=== PATIENT | male | born 1970 | race African-American/Black ===

== ENCOUNTER 2025-11-05 22:24 | Emergency (ER) | payer MEDICARE, OTHER ==
[~2025-11-05] VITALS: Ht 170.2 cm; Wt 68.0 kg
[2025-11-05 22:35] VITALS: O2SAT 98
[2025-11-05] MEDS: IPRATROPIUM BROMIDE 0.5 MG/2.5 ML NEBU NEB ONE (22:35)
[2025-11-05] MEDS: ALBUTEROL SULFATE 2.5 MG/3 ML NEBU NEB ONE (22:36)
[2025-11-05] MEDS ORDERED: IPRATROPIUM BROMIDE 0.5 MG/2.5 ML NEBU ONE (22:38)
[2025-11-05] MEDS ORDERED: ALBUTEROL SULFATE 2.5 MG/3 ML NEBU ONE (22:38)
[2025-11-05 22:45] VITALS: O2SAT 100
[2025-11-05 22:51] LABS: PLATELET COUNT (AUTO) 407 K/uL (152-348); RED BLOOD CELL COUNT(AUTO) 3.53 MIL/uL (4.06-5.63); RED CELL DISTRIBUTION WIDTH 14.9 % (12.1-16.2); WHITE BLOOD COUNT (AUTO) 7.6 K/uL (3.6-10.2)
[2025-11-05 22:58] LABS: CREATININE 1.2 mg/dL (0.6-1.3); SODIUM SERUM 141 mmol/L (136-145); UREA NITROGEN, BLOOD 23 mg/dL (7-18)
[2025-11-05 23:04] LABS: ASPARTATE AMINOTRANSFERASE 22 U/L (15-37); TOTAL PROTEIN, SERUM 5.8 g/dL (6.4-8.2)
[2025-11-05 23:09] LABS: LACTIC ACID 2.1 mmol/L (0.4-2.0)
[2025-11-05] MEDS: IV NORMAL SALINE 1000 ML BAG IV ONE ×2 (23:15→23:23)
[2025-11-05] MEDS ORDERED: diphenhydrAMINE 50 MG/1 ML VIAL ONE (23:21)
[2025-11-05] MEDS ORDERED: HYDROMORPHONE 1 MG/1 ML DISP.SYRIN ONE (23:22)
[2025-11-05] MEDS ORDERED: METOCLOPRAMIDE HCL 10 MG/2 ML VIAL ONE (23:22)
[2025-11-05] MEDS: METOCLOPRAMIDE HCL 10 MG/2 ML VIAL IV ONE (23:29)
[2025-11-05] MEDS: diphenhydrAMINE 50 MG/1 ML VIAL IV ONE (23:29)
[2025-11-05] MEDS: HYDROMORPHONE 1 MG/1 ML DISP.SYRIN IV ONE (23:30)
[2025-11-06] MEDS ORDERED: HYDR4TAB4 PO (00:19)
[2025-11-06] MEDS ORDERED: KETOROLAC TROMETHAMINE 30 MG INJ ONE (00:26)
[2025-11-06] MEDS ORDERED: HYDROMORPHONE 1 MG/1 ML DISP.SYRIN ONE (00:26)
[2025-11-06] MEDS: KETOROLAC TROMETHAMINE 30 MG INJ IVP ONE (00:29)
[2025-11-06] MEDS: HYDROMORPHONE 1 MG/1 ML DISP.SYRIN IV ONE (00:29)
[2025-11-06 01:09] VITALS: BP 116/78
[2025-11-06 02:06] VITALS: BP 116/78; TEMP 98.1; O2SAT 100
== END 2025-11-06 02:07 | disposition home or self-care (01) ==
LOC: ER 22:27
DX: Z43.0 Encounter for attention to tracheostomy (principal); F31.9 Bipolar disorder, unspecified; A41.9 Sepsis, unspecified organism; R06.02 Shortness of breath; Z85.819 Personal history of malignant neoplasm of unspecified site of lip, oral cavity, and pharynx
CPT/HCPCS: 99285; 96374; 71045; 96361; 96375 ×2; 80076; 80048; 83880; 85025; 87040; 84484; 93005; 83605 ×2; 31720; 36415; 94640; 96376; J1200; J2765; J1171 ×2; J7040 ×2; J1885; A4606; A4663; J3590